=== PATIENT | female | born 1995 | race Hispanic/Latino ===

== ENCOUNTER 2024-02-29 06:59 | Outpatient (CLI) | payer OTHER | END 2024-02-29 07:00 | disposition home or self-care (01) | LOC: BICULT 06:59 | PROVIDERS: ATTEND Advanced Practice Midwife | DX: Z34.92 Encounter for supervision of normal pregnancy, unspecified, second trimester (principal); Z3A.22 22 weeks gestation of pregnancy | CPT/HCPCS: 76805 ==